=== PATIENT | male | born 1985 | race American Indian/Alaskan Native ===

== ENCOUNTER 2017-01-18 15:18 | Emergency (ER) | payer OTHER ==
[2017-01-18] MEDS ORDERED: TYLENOL ONE (19:32)
[2017-01-18] MEDS ORDERED: TYLENOL PO ONE (19:35)
--- NOTE | 2017-01-18 20:11 | Cat Scan Report ---
FINAL REPORT PROCEDURE: CT CERVICAL SPINE WO CON TECHNIQUE: Computerized tomography of the cervical spine was performed from the skull base to T1 without contrast material. HISTORY: pain COMPARISON: No prior studies are available for comparison. FINDINGS: C1-2: No significant abnormality. C2-3: No significant abnormality. C3-4: No significant abnormality. C4-5: No significant abnormality. C5-6: No significant abnormality. C6-7: No significant abnormality. C7-T1: No significant abnormality. Other: The skull base and the foramen magnum are intact. The cervical vertebrae are intact. There are no fractures or malalignments. There is no disc disease or facet dislocation. The prevertebral soft tissues are normal in thickness per. IMPRESSION: No significant abnormality.
--- NOTE | 2017-01-18 20:15 | Cat Scan Report ---
FINAL REPORT PROCEDURE: CT HEAD/BRAIN WO CON TECHNIQUE: Computerized tomography of the head was performed without contrast material. HISTORY: pain COMPARISON: No prior studies are available for comparison. FINDINGS: Skull and scalp: Normal. Paranasal sinuses: Normal. Ventricles and subarachnoid spaces: Normal. Cerebrum: No evidence of hemorrhage, acute infarction or mass . Cerebellum and brainstem: No evidence of hemorrhage, acute infarction or mass. Vasculature: Normal. Comments: None. IMPRESSION: Normal Examination
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
[2017-01-18] MEDS ORDERED: FLEXERIL PO ONE (20:57)
[2017-01-18 21:28] VITALS: BP 171/62
== END 2017-01-18 21:30 | disposition home or self-care (01) ==
LOC: ED 15:18
DX: M79.1 Myalgia (principal); E11.9 Type 2 diabetes mellitus without complications; J45.909 Unspecified asthma, uncomplicated; V49.40XA Driver injured in collision with unspecified motor vehicles in traffic accident, initial encounter; Y93.89 Activity, other specified; Y99.9 Unspecified external cause status; Y92.410 Unspecified street and highway as the place of occurrence of the external cause
CPT/HCPCS: 70450; 72125; 99283